=== PATIENT | male | born 1960 | race Two or more races ===

== ENCOUNTER 2024-04-16 20:27 | Emergency (ER) | payer BC ==
[~2024-04-16] VITALS: Ht 172.7 cm; Wt 72.6 kg
[2024-04-16] MEDS ORDERED: PROAIR RESPICL90 MCG (21:30)
[2024-04-16] MEDS ORDERED: ARMOUR THYROID30 M1 PO (21:31)
[2024-04-16] MEDS ORDERED: IPRATROPIUM BROMIDE 0.5 MG/2.5 ML AMPUL.NEB IH SCH (22:30)
[2024-04-17] MEDS ORDERED: METHYLPREDNISOLONE SOD SUCC 125 MG VIAL IV ONE (00:45)
[2024-04-17] MEDS ORDERED: HYDROCODONE/CHLORPHEN P-STIREX 5 ML ML PO ONE (00:45)
[2024-04-17] MEDS ORDERED: CEFTRIAXONE SODIUM 1,000 MG VIAL IV ONE (00:45)
[2024-04-17] MEDS ORDERED: OSELTAMIVIR PHOSPHATE 75 MG CAPSULE PO ONE (01:00)
[2024-04-17] MEDS ORDERED: 0.9 % SODIUM CHLORIDE 1,000 ML IV SCH (01:00)
[2024-04-17] MEDS ORDERED: LEVALBUTEROL HCL 1.25 MG/3 ML SOLUTION IH SCH (01:00)
[2024-04-17 01:06] LABS: ABG PH 7.412 (7.35-7.45); ABG PO2 79.8 mmHg (80-100); ABG pCO2 34.7 mmHg (35-45); BASE EXCESS -2.3 mmol/l; BICARBONATE 21.6 mmol/l (23-25); SaO2 95.7 %; Tco2 22.7 mmol/l; allen test SATISFACTORY; puncture site RADIAL LEFT
[2024-04-17 01:07] LABS: o2 21 %
[2024-04-17 01:40] LABS: HEMATOCRIT 45.8 % (39.0-48.0); HEMOGLOBIN 15.3 g/dL (13-16.00); MEAN CELL VOLUME 96.7 fL (80.0-100.00); MEAN CORPUSCULAR HEMOGLOBIN 32.4 pg (27.00-32.0); MEAN CORPUSCULAR HGB CONC 33.4 g/dl (32.0-36.0); PLATELET COUNT 158 K/uL (150-450); RED BLOOD COUNT 4.74 M/uL (4.00-6.00); RED CELL DISTRIBUTION WIDTH 13.5 % (11.5-14.5)
[2024-04-17] MEDS ORDERED: OSEL75CA PO (02:09)
[2024-04-17] MEDS ORDERED: MEDROLPACK PO (02:09)
[2024-04-17] MEDS ORDERED: ALBUTEROL2.5 MG/3 M IH (02:09)
[2024-04-17] MEDS ORDERED: TUSNEL LIQUID178 ML PO (02:09)
== END 2024-04-17 02:25 | disposition home or self-care (01) ==
LOC: ER 20:29
PROVIDERS: General Practice
DX: J10.1 Influenza due to other identified influenza virus with other respiratory manifestations (principal); Z20.822 Contact with and (suspected) exposure to COVID-19